=== PATIENT | female | born 1950 | race Caucasian/White ===

== ENCOUNTER 2016-11-20 20:11 | Emergency (ER) | payer MEDICARE ==
[~2016-11-20] VITALS: Ht 165.1 cm; Wt 97.5 kg
[~2016-11-20 20:11] MED LIST: ADVAIR 250/5028 PUFF IN; ALBUTEROL2.5 MG/NEB IN; DE-CHLOR DM 47473 ML PO; LEVAQUIN500 MG PO; LEVOTHYROXIN0.175 MG PO; LEVOTHYROXINE0.15 MG PO; MEDROL 4MG. DOSE4 MG PO; PLAQUENIL200 MG PO; PREDNICOT10 MG PO; PREDNISONE20 MG PO; PRILOSEC20 M1 PO; PROMETH/CODEIN120 ML PO; SINGULAIR10 MG PO; SYMBICORT1 AE1 IH; VIBRAMYCIN 100100 MG PO; ZITHROMAX Z PA250 MG PO
--- NOTE | 2016-11-20 20:33 | Urgent Treatment Center Report ---
History of Present Issue Date/Time Seen by Provider 11/20/16 2030 Visit Reason Pt arrived:Walked Presenting Problem:PT STATES THAT SHE HAD A HANG NAIL TO HER RIGHT RING FINGER THAT WENT AWAY BUT RETURNED A BLISTER THAT SHE POPPED. STATES SWELLING AND STREAK FROM AREA THAT GOES UP HER ARM FOR TWO DAYS Location if Accident: Onset of symptoms date/time:/ or onset unknown for:MEDICAL HX UNKNOWN Have you (or family members/close friends) recently traveled outside the [place]? N If Yes, where/when: Have you had exposure to infectious disease within the past month? TB? Other? Specify: Here w/ spouse c/o swelling and redness of right 4th digit x 2 days. Noticed red streak from finger to wrist this morning. Throughout the day, red streak has spread up posterior FA to distal 1/4th. Symptoms started after pt pulled hand nail. Tender red blister developed 2 days ago. pt "stuck a needle in it" and drained thick green drainage. However since then, entire finger getting more red , more swollen and tender despite epsom salt soaks and antibiotic ointment. Worried now that noticed red streaking. No fever, aches, chills or flu like symptoms. Source patient Exam Limitations no limitations ALLERGIES Coded Allergies: aspirin (11/20/16) oseltamivir (From TAMIFLU) (11/20/16) Home Medications Active Scripts ALBUTEROL (Albuterol 0.083% Neb) 3 ML IN Q6HP #90 VIAL Prov: 08/21/10 Reported Medications Hydroxychloroquine Sulfate (Plaquenil) 200 MG PO DAILY Montelukast Sodium (Singulair) 10 MG PO QHS Levothyroxine Sodium (Levothyroxine 0.15MG) 0.125 MG PO DAILY Ranitidine Hcl (Ranitidine 150MG) 150 MG PO BID Cetirizine Hcl (Zyrtec) 10 MG PO NIGHTLY MAGNESIUM OXIDE (Magnesium Oxide) 250 MG PO DAILY Lisinopril/Hydrochlorothiazide (Zestoretic 20-12.5 MG Tablet) 1 EACH PO DAILY FLUTICASONE/VILANTEROL (Breo Ellipta 100-25 Mcg INH) 1 POW IH DAILY History Medical History General CAD? No Angina: No [place]: No Hypertension? No Hyperlipidemia? No CHF? No DVT? No PE? No COPD? Yes Asthma? Yes Anemia? No GERD? No Gastric ulcers? No GI Bleed? No Hernia? No Thyroid Problems? Yes Hypothyroidism? Yes CVA? No Seizures? No Diabetes? No Renal Insuffiency? No UTI? No Stones? No BPH? No GB Disease: No Nephritic Syndrome? No Asplenia? No Hepatitis? No Sickle Cell Disease? No Arthritis? No Migraines? No Cataracts? No Glaucoma? No MRSA? No HIV? No TB? No Anxiety? No Depression? No Cancer? No Immunization HX DT/Tetanus 5-10 YRS Flu LAST YEAR Pneumonia 1-4 YRS Surgical Hx Previous Surgery?Y ANKLE SURGERY Family History Family HX Diabetes Yes CAD Yes Hypertension Yes Hyperlipidemia Yes Cancer No TB No Social History Smoking Hx Smoker: Never Smoker Tobacco: No Alcohol Alcohol: No Review of Systems All Other Systems Reviewed and Negative Constitutional see HPI Gastrointestinal denies nausea, denies vomiting Musculoskeletal see HPI, denies joint pain Skin see HPI Psychiatric/Neurological denies numbness, denies tingling Physical Exam Vital Signs Vital Signs Date Time Temp Pulse Resp B/P Pulse O2 O2 Flow FiO2 Ox Delivery Rate 11/21 2123 98.2 76 18 133/73 100 11/20 2022 98.2 76 18 133/73 100 General Appearance normal appearance, no apparent distress Respiratory Status No: respiratory distress. Cardiovascular no peripheral edema Peripheral Pulses Pulses normal Yes (radial) Extremities normal range of motion (right wrist and digits 1,2,3,5), limited ROM right 4th digit PIP joints, full ROM MCP. Mild tenderness generalized throughout entire right 4th digit including joints but stoppin at MCP joint. see skin Neurologic alert, no motor/sensory deficits, oriented x 3 Skin significant paronychia surrounding right 4th digits cuticle. Moderate swelling. No fluctuation. No current drainage. Generalized erythema throughout right 4th digit w/ red streak traveling proximally including only distal 1/4th right FA Lymphatic no adenopathy Medical Decision Making LABS/Meds/Orders Pt receiving controlled substance in ED? No Results/Orders Current Medication Orders Sig/Anil Start time Last Medication Dose Route Stop Time Status Admin Clindamycin Phosphate 0 .STK-MED ONE 11/20 2046 DC .ROUTE Clindamycin Phosphate 450 MG ONCE ONE 11/20 2044 DC 11/20 IM 11/20 Departure Departure Time of Disposition 2121 Disposition DC Home or Self Care(routine) Clinical Impression Primary Impression: Paronychia of finger of right hand Secondary Impressions: Cellulitis Qualifiers: Site of cellulitis: extremity Site of cellulitis of extremity: finger Laterality: right Qualified Code: L03.011 - Cellulitis of right finger Condition STABLE Referrals Thomas ROBIN,Ishan (Family) Wound follow up Wednesday. Return to [facility] immediately for new or worsening symptoms including but not limited to fever, aches, chills, red streaking continuing up arm. Patient Instructions DI for Cellulitis -- Adult, DI for Paronychia Additional Instructions * Start antibiotic tomorrow since you had the first dose tonight and there is no pharmacy open. Be sure to take as ordered for the FULL length of time although you should start to see improvement over the next 24-48 hours. * Monitor closely. Marked the end of the red streak to make it easier for you to monitor. FU immediately for new or worsening symptoms ( including but not limited to redness, swelling, longer red streaking, fever, chills). * Warm compresses 15 min 3-4 times a day * never squeeze or pop these on your own. Seek immediate medical attention next time these occur. * Monitor Temp. Tylenol every 4 hours as needed and/or ibuprofen every 6 hours as needed (as long as your primary care doctor has told you that it is ok to take both) for fever/aches/pain. ER if fever no less than 101 despite tylenol and ibuprofen Discharge Counseling Counseled pt/family regarding diagnosis, medications/RX, home care, follow up needs Prescriptions Current Visit Scripts Clindamycin Hcl (Clindamycin 300MG) 300 MG PO QID #40 CAP at 1481
[2016-11-20] MEDS ORDERED: RANITIDINE HCL150 MG PO (20:34)
[2016-11-20] MEDS ORDERED: ZYRTEC ALLERGY10 MG PO (20:35)
[2016-11-20] MEDS ORDERED: ZESTORETIC 20-1 EACH PO (20:36)
[2016-11-20] MEDS ORDERED: MAG-OX 400MG T400 MG PO (20:36)
[2016-11-20] MEDS ORDERED: BREO ELLIPTA1 POW IH (20:36)
[2016-11-20] MEDS ORDERED: CLINDAMYCIN HC300 MG PO (20:59)
[2016-11-20 21:24] VITALS: BP 133/73
== END 2016-11-20 21:24 | disposition home or self-care (01) ==
LOC: UTC 20:11
DX: L03.011 Cellulitis of right finger (principal); E03.9 Hypothyroidism, unspecified; Z79.51 Long term (current) use of inhaled steroids; Z79.899 Other long term (current) drug therapy; Z88.6 Allergy status to analgesic agent; Z88.7 Allergy status to serum and vaccine; J44.9 Chronic obstructive pulmonary disease, unspecified

== ENCOUNTER → 2017-01-04 | Outpatient (CLI) | payer MEDICARE ==
[~2017-01-04] MED LIST changes: +BREO ELLIPTA1 POW IH; +CLINDAMYCIN HC300 MG PO; +MAG-OX 400MG T400 MG PO; +RANITIDINE HCL150 MG PO; +ZESTORETIC 20-1 EACH PO; +ZYRTEC ALLERGY10 MG PO
--- NOTE | 2017-01-04 23:49 | RADIOLOGY REPORT PS360 ---
BONE DEXA SCAN.-BONE DENSITY STUDY HIPS AND LUMBAR SPINE HISTORY: Postmenopausal female 63-year-old female Hypothyroidism low calcium intake. History of taking levothyroxine History of taking female hormones in the distant past to stop in 2001... . broken ankle over 20 years ago TECHNIQUE: DEXA scan hip and lumbar spine The most complete data summary and color graphic presentation of the today's ( and any prior ) DEXA findings are available in PACS. Definition and treatment guidelines included. COMPARISON: None listed LUMBAR SPINE: Osteopenia L1 vertebral body demonstrates the lowest T score -2.2 with BMD0.87 g/cm sq L2 vertebra also with T score -2.2 but BMD 0.932 Overall mean lumbar L1-L4 T score -1.9 with BMD0.95 g/cm sq .. . HIPS: Osteopenia Femoral neck density is best predictor of hip fracture risk . Osteopenia both right and left femoral neck: Left femoral neck demonstrates the lowest T score -2.1 with BMD0.746 g/cm sq . Right femoral neck T score -1.9 Average all regions yields today's Hip Mean T score -1.1 with BMD0.867 g/cm sq . . IMPRESSION 1. LUMBAR SPINE: Overall T score equal -1.9 = osteopenia . Lowest bone density at L1 & L2 w ith T score -2.2 at each of these vertebra 2. HIPS: Overall T score -1.1 reflect osteopenia. Osteopenia most evident at left femoral neck where T score is -2.1 WHO criteria for post-menopausal, Women: Normal: T-score at or above -1 SD Osteopenia: T-score between -1 and -2.5 SD Osteoporosis: T-score at or below -2.5 SD : Ishan Guzman MD TECHNIQUE: COMPARISON : FINDINGS IMPRESSION:
--- NOTE | 2017-01-06 12:59 | RADIOLOGY REPORT PS360 ---
DIG MAMM-SCREEN YOLI W/CAD CAD Screening ORDERING PHYSICIAN : Ishan Guzman MD PATIENT AGE: 66 years GENDER: Female COMPARISON: Previous mammograms: September 20152014, February INDICATION: Routine screening no hormones. No new complaints. Noncontributory family history. TECHNIQUE: Standard CC and MLO images were obtained. R2 CAD reviewed. FINDINGS: Minimal fibroglandular elements bilaterally with fairly low-density breast. RIGHT BREAST: Minor focal area of glandular density upper-outer quadrant left breast appears stable since prior studies 2012 LEFT BREAST: Stable appearance no new findings follow-up in one year. Minimal nodular densities laterally remain stable IMPRESSION: Stable bilateral mammogram with no significant new findings. Bilateral follow-up in one year recommended. Stable areas of mild asymmetric density. BI-RADS CATEGORY: 2_Benign RECOMMENDED FOLLOWUP: 12M 12 MONTH FOLLOW-UP (A letter has been sent to the patient regarding results of the study.)
== END ==
LOC: RAD 09:48
DX: Z12.31 Encounter for screening mammogram for malignant neoplasm of breast (principal); Z78.0 Asymptomatic menopausal state; Z13.820 Encounter for screening for osteoporosis
CPT/HCPCS: G0202